=== PATIENT | female | born 1960 | race Caucasian/White ===

== ENCOUNTER 2017-09-27 23:48 | Emergency (ER) | payer MEDICAID ==
[~2017-09-27] VITALS: Ht 147.3 cm; Wt 125.0 kg
[2017-09-28] MEDS ORDERED: LORazepam 1 MG tablet PO ONE (00:40)
[2017-09-28 02:26] VITALS: BP 128/77
[2017-09-28] MEDS ORDERED: LORA1TAB PO (02:27)
== END 2017-09-28 02:40 | disposition home or self-care (01) ==
LOC: ER 23:49
DX: F41.9 Anxiety disorder, unspecified (principal); R06.02 Shortness of breath; F17.200 Nicotine dependence, unspecified, uncomplicated; Z88.8 Allergy status to other drugs, medicaments and biological substances; Z79.899 Other long term (current) drug therapy
CPT/HCPCS: 71045; 93005; 99284